=== PATIENT | male | born 1975 | race Two or more races ===

== ENCOUNTER 2019-01-09 03:26 | Inpatient (IN) | payer SELFPAY ==
[~2019-01-09] VITALS: Ht 167.6 cm; Wt 81.6 kg
[2019-01-09 03:43] LABS: BASO # 0.1 x10^3/uL (0.0-0.2); BASO % 2 % (0-3); EOS # 0.3 x10^3/uL (0.0-0.7); EOS % 4 % (0-3); HEMATOCRIT 45.9 % (39.0-53.0); LYMPH # 3.5 x10^3/uL (1.0-4.8); LYMPH % 52 % (24-48); MEAN CORPUSCULAR VOLUME 93 fL (79-100); MONO # 0.8 x10^3/uL (0.0-1.1); MONO % 11 % (0-9); NEUT # 2.1 x10^3/uL (1.8-7.7); NEUT % 31 % (31-73); PLATELET COUNT 196 x10^3/uL (140-400); RED BLOOD COUNT 4.95 x10^6/uL (4.30-5.70); RED CELL DISTRIBUTION WIDTH 12.7 % (11.5-14.5); WHITE BLOOD COUNT 6.7 x10^3/uL (4.0-11.0)
[2019-01-09] MEDS ORDERED: ONDANSETRON PF 4 MG/2 ML VIAL. IV ONE (03:45)
[2019-01-09 03:50] LABS: PROTHROMBIN TIME PATIENT 12.8 SEC (11.7-14.0)
[2019-01-09 03:51] LABS: CALCIUM 8.4 mg/dL (8.5-10.1); CREATININE 1.2 mg/dL (0.7-1.3); GFR 65.5; POTASSIUM 3.8 mmol/L (3.5-5.1)
[2019-01-09 03:57] LABS: ALBUMIN 3.5 g/dL (3.4-5.0); ALBUMIN/GLOBULIN RATIO 0.8 (1.0-1.7); TOTAL BILIRUBIN 1.2 mg/dL (0.2-1.0)
[2019-01-09] MEDS ORDERED: IV NORMAL SALINE 1000ML BAG 1,000 ML IV ONE (04:00)
[2019-01-09] MEDS ORDERED: MORPHINE SULFATE 4 MG/ML VIAL. IV ONE (04:00)
[2019-01-09 04:10] LABS: HEMOGLOBIN 15.8 g/dL (13.0-17.5); MEAN CORPUSCULAR HEMOGLOBIN 32 pg (25-35); MEAN CORPUSCULAR HGB CONC 34 g/dL (31-37)
[2019-01-09 04:16] LABS: TOTAL PROTEIN 8.1 g/dL (6.4-8.2)
[2019-01-09] MEDS ORDERED: IOHEXOL 300 MG/ML 100ML VIAL. IV ONE (05:00)
[2019-01-09] MEDS ORDERED: CONTRAST GIVEN. MC PRN (05:00)
--- NOTE | 2019-01-09 05:44 | PHYS DOC ---
Past Medical History Past Medical History: No Pertinent History (RAY JC MD) Past Surgical History: No Surgical History (RAY JC MD) Alcohol Use: Heavy Drug Use: None (RAY JC MD) Adult General Chief Complaint Chief Complaint: ABDOMINAL PAIN HPI HPI Patient is a 43 year old male presents with. Umbilical pain onset around 3 AM and awoke him from sleep it is severe he feels nauseous no vomiting last bowel movement was yesterday he last ate around 9 PM Pain is sharp severe cramping worst at that umbilicus no prior history no prior surgeries occasional alcohol actually he says fairly regularly no smoking known drug allergies occasionally goes to [facility]. All other ROS neg unless otherwise noted in HPI (RAY JC MD) Review of Systems Review of Systems SEE ABOVE (RAY JC MD) Current Medications Current Medications Current Medications Medications (Trade) Dose Ordered Sig/Aleks Start Time Stop Time Status Last Admin Dose Admin Info (CONTRAST GIVEN -- Rx MONITORING) 1 each PRN DAILY PRN 01/09/19 05:00 01/11/19 04:59 Iohexol (Omnipaque 300 Mg/ml) 75 ml 1X ONCE 01/09/19 05:00 01/09/19 05:01 DC 01/09/19 05:28 75 ML Lorazepam (Ativan Inj) 0.5 mg 1X ONCE 01/09/19 03:45 01/09/19 03:46 DC 01/09/19 03:40 0.5 MG Morphine Sulfate (Morphine Sulfate) 4 mg 1X ONCE 01/09/19 04:00 01/09/19 04:01 DC 01/09/19 03:39 4 MG Ondansetron HCl (Zofran) 4 mg 1X ONCE 01/09/19 03:45 01/09/19 03:46 DC 01/09/19 03:39 4 MG Sodium Chloride 1,000 ml @ 1,000 mls/hr 1X ONCE 01/09/19 04:00 01/09/19 04:59 DC 01/09/19 03:38 1,000 MLS/HR (DEE WALSH DO) Allergies Allergies Allergies Coded Allergies Type Severity Reaction Last Updated Verified No Known Drug Allergies 01/09/19 No (DEE WALSH DO) Physical Exam Physical Exam see above Constitutional: Well developed, well nourished, no acute distress, non-toxic appearance. [] HENT: Normocephalic, atraumatic, bilateral external ears normal, oropharynx moist, no oral exudates, nose normal. [] Eyes: PERRLA, EOMI, conjunctiva normal, no discharge. [] Neck: Normal range of motion, no tenderness, supple, no stridor. [] Cardiovascular:Heart rate regular rhythm, no murmur [] Lungs & Thorax: Bilateral breath sounds clear to auscultation [] Abdomen: Bowel sounds normal, there is no apparent umbilical hernia that is somewhat firm some mild discoloration not really that indurated however it was tender to palpation after a dose of morphine and Ativan I provided gentle p ressure and really was unable to adequately reduce it. The remainder of the abdomen was soft and essentially nontender no peritoneal signs Skin: Warm, dry, no erythema, no rash. [] Back: No tenderness, no CVA tenderness. [] Extremities: No tenderness, no cyanosis, no clubbing, ROM intact, no edema. [] Neurologic: Alert and oriented X 3, normal motor function, normal sensory function, no focal deficits noted. [] Psychologic: Affect normal, judgement normal, mood normal. [] (RAY JC MD) Physical Exam There is a tender irreducible umbilical hernia with mild discoloration, (DEE WALSH DO) Current Patient Data Vital Signs Vital Signs Date Time Temp Pulse Resp B/P (MAP) Pulse Ox O2 Delivery O2 Flow Rate FiO2 01/09/19 05:26 75 26 158/87 (110) 97 Room Air 01/09/19 03:30 98.4 98.4 (DEE WALSH DO) Lab Values Laboratory Tests Test 01/09/19 03:35 White Blood Count 6.7 x10^3/uL (4.0-11.0) Red Blood Count 4.95 x10^6/uL (4.30-5.70) Hemoglobin 15.8 g/dL (13.0-17.5) Hematocrit 45.9 % (39.0-53.0) Mean Corpuscular Volume 93 fL (79-100) Mean Corpuscular Hemoglobin 32 pg (25-35) Mean Corpuscular Hemoglobin Concent 34 g/dL (31-37) Red Cell Distribution Width 12.7 % (11.5-14.5) Platelet Count 196 x10^3/uL (140-400) Neutrophils (%) (Auto) 31 % (31-73) Lymphocytes (%) (Auto) 52 % (24-48) H Monocytes (%) (Auto) 11 % (0-9) H Eosinophils (%) (Auto) 4 % (0-3) H Basophils (%) (Auto) 2 % (0-3) Neutrophils # (Auto) 2.1 x10^3/uL (1.8-7.7) Lymphocytes # (Auto) 3.5 x10^3/uL (1.0-4.8) Monocytes # (Auto) 0.8 x10^3/uL (0.0-1.1) Eosinophils # (Auto) 0.3 x10^3/uL (0.0-0.7) Basophils # (Auto) 0.1 x10^3/uL (0.0-0.2) Prothrombin Time 12.8 SEC (11.7-14.0) Prothrombin Time INR 1.0 (0.8-1.1) Sodium Level 137 mmol/L (136-145) Potassium Level 3.8 mmol/L (3.5-5.1) Chloride Level 99 mmol/L (98-107) Carbon Dioxide Level 18 mmol/L (21-32) L Anion Gap 20 (6-14) H Blood Urea Nitrogen 15 mg/dL (8-26) Creatinine 1.2 mg/dL (0.7-1.3) Estimated GFR (Cockcroft-Gault) 65.5 BUN/Creatinine Ratio 13 (6-20) Glucose Level 183 mg/dL (70-99) H Calcium Level 8.4 mg/dL (8.5-10.1) L Total Bilirubin 1.2 mg/dL (0.2-1.0) H Aspartate Amino Transferase (AST) 87 U/L (15-37) H Alanine Aminotransferase (ALT) 77 U/L (16-63) H Alkaline Phosphatase 134 U/L (46-116) H Total Protein 8.1 g/dL (6.4-8.2) Albumin 3.5 g/dL (3.4-5.0) Albumin/Globulin Ratio 0.8 (1.0-1.7) L Lipase 154 U/L (73-393) Laboratory Tests 01/09/19 03:35 Laboratory Tests 01/09/19 03:35 (DEE WALSH DO) EKG EKG [] (RAY JC MD) Radiology/Procedures Radiology/Procedures [] (RAY JC MD) Radiology/Procedures [facility] [address] [place] [address] IMAGING REPORT Signed PATIENT: SANDRA ORTIZ ACCOUNT: [id number] : 1975 LOCATION: ER AGE: 43 SEX: M EXAM STATUS: REG ER ORD. PHYSICIAN: RAY JC MD REASON: eval umbilical hernia PROCEDURE: CT ABD PELV W/ IV CONTRST ONLY EXAM: CT Abdomen and Pelvis with IV contrast CLINICAL HISTORY: Periumbilical pain, umbilical hernia. COMPARISON: none TECHNIQUE: Helical CT of the abdomen and pelvis was performed following the administration of intravenous contrast. Axial, coronal and sagittal reformatted images were generated. PQRS compliance statement - One or more of the following individualized dose reduction techniques were utilized for this study: 1. Automated exposure control 2. Adjustment of the mA and/or kV according to patient size 3. Use of iterative reconstruction technique FINDINGS: Lower chest: Lung bases are clear. Abdomen and Pelvis: Diffuse hepatic hypoattenuation may be seen with hepatic steatosis. Gallbladder is contracted. No biliary duct dilatation. Pancreas is unremarkable. Spleen is normal in appearance. Right adrenal gland is grossly unremarkable. Calcifications of adrenal gland may be seen with prior adrenal hemorrhage. Symmetric nephrograms. No focal renal lesion. No hydronephrosis. No hydroureter. Moderate colonic stool content is seen. Appendix is normal. No small or large bowel dilatation. No abdominal or pelvic lymphadenopathy. No abdominal or pelvic ascites. Small fat-containing periumbilical hernia is seen. Minimal fat infiltration may suggest symptomatic hernia. No associated free or loculated fluid collection. The base of this hernia is narrow. Bladder is quite distended, which can be correlated for possible voluntary or involuntary causes of urinary retention. Bones: Osseous structures are unremarkable. IMPRESSION: Minimal wall fat infiltration within a fat-containing periumbilical hernia (with a narrow base), possibly symptomatic hernia. No associated fluid collection. Bladder is quite distended, which can be correlated for possible voluntary or involuntary causes of urinary retention. Electronically signed by: Kwabena Decker MD (01/09/2019 5:49 AM) [facility] [id number] DICTATED and SIGNED BY: KWABENA DECKER MD DATE: 01/09/19 0549 (DEE WALSH DO) Course & Med Decision Making Course & Med Decision Making Pertinent Labs and Imaging studies reviewed. (See chart for details) []4:30 AM I discussed with Dr. HACKETT, recommend CT scan to get a better look at what is in the umbilical hernia call back with resuLT WHEN IT COMES BACK S/O JILLIAN to d/w cassi the results of ct scan. (RAY JC MD) Course & Med Decision Making Discussed with Dr. Hackett, he will take patient to OR for definitive treatment today, requested patient to be admitted to hospitalist service Discussed with Dr Wright whom agreed to admit patient (DEE WALSH DO) Dragon Disclaimer Dragon Disclaimer This electronic medical record was generated, in whole or in part, using a voice recognition dictation system. (RAY JC MD) Departure Departure Impression: Primary Impression: Incarcerated umbilical hernia Disposition: ADMITTED INPATIENT Admitting Physician: MERY (DEE WALSH DO) Condition: STABLE Referrals: NO PCP (PCP) Scripts No Active Prescriptions or Reported Meds RAY JC MD Jan 09, 2019 05:44 DEE WALSH DO Jan 09, 2019 06:30
--- NOTE | 2019-01-09 05:52 | RAD ---
EXAM: CT Abdomen and Pelvis with IV contrast CLINICAL HISTORY: Periumbilical pain, umbilical hernia. COMPARISON: none TECHNIQUE: Helical CT of the abdomen and pelvis was performed following the administration of intravenous contrast. Axial, coronal and sagittal reformatted images were generated. PQRS compliance statement - One or more of the following individualized dose reduction techniques were utilized for this study: 1. Automated exposure control 2. Adjustment of the mA and/or kV according to patient size 3. Use of iterative reconstruction technique FINDINGS: Lower chest: Lung bases are clear. Abdomen and Pelvis: Diffuse hepatic hypoattenuation may be seen with hepatic steatosis. Gallbladder is contracted. No biliary duct dilatation. Pancreas is unremarkable. Spleen is normal in appearance. Right adrenal gland is grossly unremarkable. Calcifications of adrenal gland may be seen with prior adrenal hemorrhage. Symmetric nephrograms. No focal renal lesion. No hydronephrosis. No hydroureter. Moderate colonic stool content is seen. Appendix is normal. No small or large bowel dilatation. No abdominal or pelvic lymphadenopathy. No abdominal or pelvic ascites. Small fat-containing periumbilical hernia is seen. Minimal fat infiltration may suggest symptomatic hernia. No associated free or loculated fluid collection. The base of this hernia is narrow. Bladder is quite distended, which can be correlated for possible voluntary or involuntary causes of urinary retention. Bones: Osseous structures are unremarkable. IMPRESSION: Minimal wall fat infiltration within a fat-containing periumbilical hernia (with a narrow base), possibly symptomatic hernia. No associated fluid collection. Bladder is quite distended, which can be correlated for possible voluntary or involuntary causes of urinary retention. Electronically signed by: Kwabena Yarbrough MD (01/09/2019 5:49 AM) [facility]
[2019-01-09] MEDS ORDERED: MORPHINE SULFATE 2 MG/ML VIAL. IV PRN ×2 (06:45→09:00)
[2019-01-09] MEDS ORDERED: ONDANSETRON PF 4 MG/2 ML VIAL. IV PRN ×2 (06:45→09:00)
--- NOTE | 2019-01-09 07:30 | NUR ---
The patient, SANDRA ORTIZ, 43 y/o, M admitted by ELIZABETH RICKS MD, was given written information regarding hospital policies, unit procedures and contact persons. Dr. Huang consulted, notified by ER. Pt states, he has had this hernia for 3 years, became bigger and more painful last night. Pain reached 10/10 w/ movement. Pain is controlled at this time. Reports no significant medical hx. Surgical hx includes: hernia repair as a young child; as a young adult, penetrating abdominal injury. Fell from a tree and was impaled by a branch. Pt takes ibuprofen for aches and pains on rare occasions. Pt drinks 4-6 beers a day, 6-7 days a week. Last drink was yesterday at 11pm, had 2 beers. Will report to providers. Will continue to monitor.
--- NOTE | 2019-01-09 07:53 | RAD ---
ACUTE ABDOMEN SERIES Clinical indications: Periumbilical abdominal pain. Possible obstruction. Comparison: None available. Findings: No obstructive bowel pattern is seen. No free intraperitoneal air or air-fluid levels are seen. Chest x-ray demonstrates no acute lung infiltrate or pleural effusion or pulmonary edema or pneumothorax is evident. Heart size and pulmonary vasculature and mediastinum and both salud are unremarkable. IMPRESSION: No acute radiographic abnormality. Electronically signed by: Amrik Johnson MD (01/09/2019 7:50 AM) [facility]
[2019-01-09] MEDS ORDERED: DEXTROSE 50% 25 GM / 50ML DISP.SYRIN. IV PRN (08:45)
[2019-01-09] MEDS ORDERED: IV DEXTROSE 5% 250 ML BAG. IV PRN (08:45)
[2019-01-09] MEDS ORDERED: IV RINGERS,LACTATED 1000ML 1,000 ML IV SCH (08:47)
--- NOTE | 2019-01-09 08:50 | NUR ---
SS following for discharge planning. SS reviewed pt chart. Pt is a self pay pt. HCFS following for self pay status. Pt is from home with spouse and is currently on room air. No discharge needs noted at this time. SS will continue to follow for discharge planning.
[2019-01-09] MEDS ORDERED: fentaNYL PF VIAL 100 MCG/2 ML VIAL IV PRN ×2 (09:00)
[2019-01-09] MEDS ORDERED: PROCHLORPERAZINE 10 MG/2 ML VIAL. IV PRN (09:00)
[2019-01-09] MEDS ORDERED: HYDROmorphone 2 MG/ML VIAL IV PRN (09:00)
[2019-01-09] MEDS ORDERED: LIDOCAINE 1% PF 2 ML VIAL. ID PRN (09:00)
[2019-01-09] MEDS: IV NORMAL SALINE 1000ML BAG 1,000 ML IV SCH ×2 (09:24→15:04)
[2019-01-09 11:00] VITALS: BP 135/83
--- NOTE | 2019-01-09 11:14 | HP ---
ADMIT DATE: CHIEF COMPLAINT: Abdominal pain. HISTORY OF PRESENT ILLNESS: The patient is a pleasant middle-aged male, who presented with abdominal pain. He appears to have an incarcerated umbilical hernia, started hurting about 3 this morning, it is rated at 10/10. I discussed the case with ER physician. We are going to admit the patient. He is going to be going for surgery possibly today. We are consulting Dr. Huang. PAST MEDICAL HISTORY: None. ALLERGIES: None. FAMILY HISTORY: Hypertension. SOCIAL HISTORY: Does not drink, smoke, or take drugs. MEDICATIONS: Reviewed, please refer to the MRAD. REVIEW OF SYSTEMS: GENERAL: No history of weight change, weakness or fevers. SKIN: No bruising, hair changes or rashes. EYES: No blurred, double or loss of vision. NOSE AND THROAT: No history of nosebleeds, hoarseness or sore throat. HEART: No history of palpitations, chest pain or shortness of breath on exertion. LUNGS: Denies cough, hemoptysis, wheezing or shortness of breath. GASTROINTESTINAL: He complains of abdominal pain. GENITOURINARY: No history of frequency, urgency, hesitancy or nocturia. NEUROLOGIC: Denies history of numbness, tingling, tremor or weakness. PSYCHIATRIC: No history of panic, anxiety or depression. ENDOCRINE: No history of heat or cold intolerance, polyuria or polydipsia. EXTREMITIES: Denies muscle weakness, joint pain, pain on walking or stiffness. PHYSICAL EXAMINATION: VITALS: Within normal limits and are stable. GENERAL: No apparent distress. Alert and oriented. HEENT: Head is normocephalic, atraumatic, pupils were equally round and reactive to light and accommodation. NECK: Supple, no JVD, no thyromegaly was noted. LUNGS: Clear to auscultation in all lung heart without rhonchi or wheezing. HEART: RRR, S1, S2 present. Peripheral pulses intact, no obvious murmurs were noted. ABDOMEN: He has an umbilical hernia that is tender to palpation. EXTREMITIES: Without any cyanosis, clubbing, or edema. Pedal pulses intact, Homans sign is negative. NEUROLOGIC: Normal speech, normal tone. A and O x 3, moves all extremities, no obvious focal deficits. PSYCHIATRIC: Normal affect, normal mood. Stable. SKIN: No ulcerations or rashes, good skin turgor, no jaundice. VASCULAR: Good capillary refill, neurovascular bundle appears to be intact. LABORATORY DATA: White count is 6. ASSESSMENT AND PLAN: Incarcerated umbilical hernia. The patient has been admitted. We are consulting General Surgery. P.r.n. pain meds, IV fluids. DVT prophylaxis. Full code. P.r.n. fentanyl. PEARL BARBER DO DR: WILLARD/juan manuel JOB#: [id number] / [id number]
[2019-01-09] MEDS: INSULIN LISPRO 300 UNITS/3 ML INSULN.PEN. SQ SCH ×2 (12:00→16:52)
[2019-01-09] MEDS ORDERED: BUPIVACAINE MPF 0.5% 30 ML VIAL. ONE (12:01)
[2019-01-09] MEDS ORDERED: PROPOFOL 0 ML IV ONE (12:16)
[2019-01-09] MEDS ORDERED: ONDANSETRON PF 4 MG/2 ML VIAL. ONE ×2 (12:16→12:46)
[2019-01-09] MEDS ORDERED: LIDOCAINE 2% PF 5 ML VIAL. ONE ×2 (12:16→12:46)
[2019-01-09] MEDS ORDERED: ROCURONIUM 50 MG/5 ML VIAL. ONE (12:17)
[2019-01-09] MEDS ORDERED: MIDAZOLAM HCL/PF 2 MG/2 ML VIAL. ONE (12:46)
[2019-01-09] MEDS ORDERED: PROPOFOL 20 ML IV ONE ×2 (12:46→13:38)
[2019-01-09] MEDS ORDERED: SEVOFLURANE 61 TO 120 MINUTES. IH ONE (12:46)
[2019-01-09] MEDS ORDERED: fentaNYL PF VIAL 100 MCG/2 ML VIAL ONE ×2 (12:46→13:50)
[2019-01-09] MEDS ORDERED: DEXAMETHASONE SOD PHOS 4 MG/ML VIAL ONE (12:46)
--- NOTE | 2019-01-09 13:14 | PDOC2 ---
CONSULT Date of Consult Date of Consult DATE: 01/09/19 TIME: 13:10 Reason for Consult Reason for Consult: incarcerated umbilical hernia Referring Physician Referring Physician: CHRIS Identification/Chief Complaint Chief Complaint umbilical pain Source Source: Chart review, Patient History of Present Illness Reason for Visit: Mr Hendrickson is a Citizen Of [place] speaking gentleman with umbilical fullness and pain. Current Problem List Problem List Problems Medical Problems: (1) Incarcerated umbilical hernia Status: Acute (2) K42.9 Status: Acute Current Medications Current Medications Current Medications Sodium Chloride 1,000 ml @ 1,000 mls/hr 1X ONCE IV Last administered on 01/09/19at 03:38; Start 01/09/19 at 04:00; Stop 01/09/19 at 04:59; Status DC Morphine Sulfate (Morphine Sulfate) 4 mg 1X ONCE IV Last administered on 01/09/19at 03:39; Start 01/09/19 at 04:00; Stop 01/09/19 at 04:01; Status DC Ondansetron HCl (Zofran) 4 mg 1X ONCE IV Last administered on 01/09/19at 03:39; Start 01/09/19 at 03:45; Stop 01/09/19 at 03:46; Status DC Lorazepam (Ativan Inj) 0.5 mg 1X ONCE IV Last administered on 01/09/19at 03:40; Start 01/09/19 at 03:45; Stop 01/09/19 at 03:46; Status DC Iohexol (Omnipaque 300 Mg/ml) 75 ml 1X ONCE IV Last administered on 01/09/19at 05:28; Start 01/09/19 at 05:00; Stop 01/09/19 at 05:01; Status DC Info (CONTRAST GIVEN -- Rx MONITORING) 1 each PRN DAILY PRN MC SEE COMMENTS; Start 01/09/19 at 05:00; Stop 01/11/19 at 04:59 Ondansetron HCl (Zofran) 4 mg PRN Q8HRS PRN IV NAUSEA/VOMITING 1ST CHOICE; Start 01/09/19 at 06:45; Stop 01/09/19 at 08:49; Status DC Morphine Sulfate (Morphine Sulfate) 2 mg PRN Q2HR PRN IV SEVERE PAIN 7-10; Start 01/09/19 at 06:45; Stop 01/10/19 at 06:44 Sodium Chloride 1,000 ml @ 100 mls/hr Q10H IV Last administered on 01/09/19at 09:24; Start 01/09/19 at 07:00; Stop 01/10/19 at 06:59 Dextrose (Dextrose 50%-Water Syringe) 12.5 gm PRN Q15MIN PRN IV SEE COMMENTS; Start 01/09/19 at 08:45 Dextrose 250 ml PRN Q15MIN PRN IV SEE COMMENTS; Start 01/09/19 at 08:45 Ondansetron HCl (Zofran) 4 mg PRN Q6HRS PRN IV NAUSEA/VOMITING; Start 01/09/19 at 09:00; Stop 01/10/19 at 08:59 Fentanyl Citrate (Fentanyl 2ml Vial) 25 mcg PRN Q5MIN PRN IV MILD PAIN 1-3; Start 01/09/19 at 09:00; Stop 01/10/19 at 08:59 Fentanyl Citrate (Fentanyl 2ml Vial) 50 mcg PRN Q5MIN PRN IV MODERATE TO SEVERE PAIN; Start 01/09/19 at 09:00; Stop 01/10/19 at 08:59 Morphine Sulfate (Morphine Sulfate) 1 mg PRN Q10MIN PRN IV SEVERE PAIN 7-10; Start 01/09/19 at 09:00; Stop 01/10/19 at 08:59 Ringer's Solution 1,000 ml @ 30 mls/hr Q24H IV ; Start 01/09/19 at 08:47; Stop 01/09/19 at 20:46 Lidocaine HCl (Xylocaine-Mpf 1% 2ml Vial) 2 ml PRN 1X PRN ID PRIOR TO IV START; Start 01/09/19 at 09:00; Stop 01/10/19 at 08:59 Hydromorphone HCl (Dilaudid) 0.5 mg PRN Q10MIN PRN IV SEV PAIN, Second choice; Start 01/09/19 at 09:00; Stop 01/10/19 at 08:59 Prochlorperazine Edisylate (Compazine) 5 mg PACU PRN PRN IV NAUSEA, MRX1; Sta rt 01/09/19 at 09:00; Stop 01/10/19 at 08:59 Insulin Human Lispro (HumaLOG) 0-5 UNITS TIDWMEALS SQ ; Start 01/09/19 at 12:00 Propofol 20 ml @ As Directed STK-MED ONCE IV ; Start 01/09/19 at 12:16; Stop 01/09/19 at 12:17; Status DC Lidocaine HCl (Lidocaine Pf 2% Vial) 5 ml STK-MED ONCE .ROUTE ; Start 01/09/19 at 12:16; Stop 01/09/19 at 12:17; Status DC Ondansetron HCl (Zofran) 4 mg STK-MED ONCE .ROUTE ; Start 01/09/19 at 12:16; Stop 01/09/19 at 12:17; Status DC Rocuronium [place] (Zemuron) 50 mg STK-MED ONCE .ROUTE ; Start 01/09/19 at 12:17; Stop 01/09/19 at 12:18; Status DC Sevoflurane (Ultane) 60 ml STK-MED ONCE IH ; Start 01/09/19 at 12:46; Stop 01/09/19 at 12:47; Status DC Fentanyl Citrate (Fentanyl 2ml Vial) 100 mcg STK-MED ONCE .ROUTE ; Start 01/09/19 at 12:46; Stop 01/09/19 at 12:47; Status DC Midazolam HCl (Versed) 2 mg STK-MED ONCE .ROUTE ; Start 01/09/19 at 12:46; Stop 01/09/19 at 12:47; Status DC Dexamethasone Sodium Phosphate (Decadron) 4 mg STK-MED ONCE .ROUTE ; Start 01/09/19 at 12:46; Stop 01/09/19 at 12:47; Status DC Propofol 20 ml @ As Directed STK-MED ONCE IV ; Start 01/09/19 at 12:46; Stop 01/09/19 at 12:47; Status DC Lidocaine HCl (Lidocaine Pf 2% Vial) 5 ml STK-MED ONCE .ROUTE ; Start 01/09/19 at 12:46; Stop 01/09/19 at 12:47; Status DC Ondansetron HCl (Zofran) 4 mg STK-MED ONCE .ROUTE ; Start 01/09/19 at 12:46; Stop 01/09/19 at 12:47; Status DC Cefazolin Sodium/ Dextrose 50 ml @ 100 mls/hr 1X PREOP PRN IV protocol; Start 01/09/19 at 13:00 Bupivacaine HCl (Sensorcaine Mpf 0.5%) 30 ml STK-MED ONCE .ROUTE ; Start 01/09/19 at 12:01; Stop 01/09/19 at 13:01; Status DC Active Scripts Active Reported No Known Medications Prior To Admisstion (Info) Each 1 Each MC Allergies Allergies: Coded Allergies: No Known Drug Allergies (Unverified , 01/09/19) ROS Review of System negative with exception of present complaints Physical Exam General: Alert, No acute distress HEENT: Atraumatic Lungs: Normal air movement Heart: Regular rate Abdomen: Soft, Other (there is soft umbilical fullness that is not reducible) Skin: No rashes Vitals VITALS Vital Signs Date Time Temp Pulse Resp B/P (MAP) Pulse Ox O2 Delivery O2 Flow Rate FiO2 01/09/19 12:13 97.6 71 22 150/100 98 97.6 01/09/19 11:00 Room Air Labs Labs Laboratory Tests Test 01/09/19 03:35 01/09/19 11:33 White Blood Count 6.7 x10^3/uL (4.0-11.0) Red Blood Count 4.95 x10^6/uL (4.30-5.70) Hemoglobin 15.8 g/dL (13.0-17.5) Hematocrit 45.9 % (39.0-53.0) Mean Corpuscular Volume 93 fL (79-100) Mean Corpuscular Hemoglobin 32 pg (25-35) Mean Corpuscular Hemoglobin Concent 34 g/dL (31-37) Red Cell Distribution Width 12.7 % (11.5-14.5) Platelet Count 196 x10^3/uL (140-400) Neutrophils (%) (Auto) 31 % (31-73) Lymphocytes (%) (Auto) 52 % (24-48) Monocytes (%) (Auto) 11 % (0-9) Eosinophils (%) (Auto) 4 % (0-3) Basophils (%) (Auto) 2 % (0-3) Neutrophils # (Auto) 2.1 x10^3/uL (1.8-7.7) Lymphocytes # (Auto) 3.5 x10^3/uL (1.0-4.8) Monocytes # (Auto) 0.8 x10^3/uL (0.0-1.1) Eosinophils # (Auto) 0.3 x10^3/uL (0.0-0.7) Basophils # (Auto) 0.1 x10^3/uL (0.0-0.2) Prothrombin Time 12.8 SEC (11.7-14.0) Prothromb Time International Ratio 1.0 (0.8-1.1) Sodium Level 137 mmol/L (136-145) Potassium Level 3.8 mmol/L (3.5-5.1) Chloride Level 99 mmol/L (98-107) Carbon Dioxide Level 18 mmol/L (21-32) Anion Gap 20 (6-14) Blood Urea Nitrogen 15 mg/dL (8-26) Creatinine 1.2 mg/dL (0.7-1.3) Estimated GFR (Cockcroft-Gault) 65.5 BUN/Creatinine Ratio 13 (6-20) Glucose Level 183 mg/dL (70-99) Calcium Level 8.4 mg/dL (8.5-10.1) Total Bilirubin 1.2 mg/dL (0.2-1.0) Aspartate Amino Transf (AST/SGOT) 87 U/L (15-37) Alanine Aminotransferase (ALT/SGPT) 77 U/L (16-63) Alkaline Phosphatase 134 U/L (46-116) Total Protein 8.1 g/dL (6.4-8.2) Albumin 3.5 g/dL (3.4-5.0) Albumin/Globulin Ratio 0.8 (1.0-1.7) Lipase 154 U/L (73-393) Glucose (Fingerstick) 115 mg/dL (70-99) Laboratory Tests Test 01/09/19 03:35 01/09/19 11:33 White Blood Count 6.7 x10^3/uL (4.0-11.0) Red Blood Count 4.95 x10^6/uL (4.30-5.70) Hemoglobin 15.8 g/dL (13.0-17.5) Hematocrit 45.9 % (39.0-53.0) Mean Corpuscular Volume 93 fL (79-100) Mean Corpuscular Hemoglobin 32 pg (25-35) Mean Corpuscular Hemoglobin Concent 34 g/dL (31-37) Red Cell Distribution Width 12.7 % (11.5-14.5) Platelet Count 196 x10^3/uL (140-400) Neutrophils (%) (Auto) 31 % (31-73) Lymphocytes (%) (Auto) 52 % (24-48) Monocytes (%) (Auto) 11 % (0-9) Eosinophils (%) (Auto) 4 % (0-3) Basophils (%) (Auto) 2 % (0-3) Neutrophils # (Auto) 2.1 x10^3/uL (1.8-7.7) Lymphocytes # (Auto) 3.5 x10^3/uL (1.0-4.8) Monocytes # (Auto) 0.8 x10^3/uL (0.0-1.1) Eosinophils # (Auto) 0.3 x10^3/uL (0.0-0.7) Basophils # (Auto) 0.1 x10^3/uL (0.0-0.2) Prothrombin Time 12.8 SEC (11.7-14.0) Prothromb Time International Ratio 1.0 (0.8-1.1) Sodium Level 137 mmol/L (136-145) Potassium Level 3.8 mmol/L (3.5-5.1) Chloride Level 99 mmol/L (98-107) Carbon Dioxide Level 18 mmol/L (21-32) Anion Gap 20 (6-14) Blood Urea Nitrogen 15 mg/dL (8-26) Creatinine 1.2 mg/dL (0.7-1.3) Estimated GFR (Cockcroft-Gault) 65.5 BUN/Creatinine Ratio 13 (6-20) Glucose Level 183 mg/dL (70-99) Calcium Level 8.4 mg/dL (8.5-10.1) Total Bilirubin 1.2 mg/dL (0.2-1.0) Aspartate Amino Transf (AST/SGOT) 87 U/L (15-37) Alanine Aminotransferase (ALT/SGPT) 77 U/L (16-63) Alkaline Phosphatase 134 U/L (46-116) Total Protein 8.1 g/dL (6.4-8.2) Albumin 3.5 g/dL (3.4-5.0) Albumin/Globulin Ratio 0.8 (1.0-1.7) Lipase 154 U/L (73-393) Glucose (Fingerstick) 115 mg/dL (70-99) Images Images CT abd/pelvis reviewed Assessment/Plan Assessment/Plan incarcerated umbilical hernia repair with the use of the manager maintenance phone R/B/A explained to patient and he will proceed Thanks for consult JORGE HACKETT MD Jan 09, 2019 13:14
--- NOTE | 2019-01-09 14:40 | PDOC ---
BRIEF OPERATIVE NOTE Date: Jan 09, 2019 Pre-Op Diagnosis incarcerated umbilical hernia\ incarcerated umbilical hernia Post-Op Diagnosis same Procedure Performed primary repair Surgeon Sal Machine Binding Folder Cassy HARVEY Anesthesia Type: General Blood Loss 10cc IV Fluid 500cc Specimens Obtained none Findings small defect with incarcerated omentum Complications none JORGE HACKETT MD Jan 09, 2019 14:40
[2019-01-09] MEDS ORDERED: oxyCODONE/APAP 5/325 1 TAB TABLET PO PRN (14:45)
[2019-01-09 15:00] VITALS: BP 123/77
[2019-01-09] MEDS ORDERED: POTASSIUM CHLORIDE 20 MEQ TABLET.ER. PO ONE (16:45)
--- NOTE | 2019-01-09 19:12 | NUR ---
Discharge Note: SANDRA ORTIZ KANAWHA Discharge instructions and discharge home medications reviewed with Patient and a copy given. All questions have been answered and understanding verbalized. The following instructions and handouts were given: post-op hernia repair Discontinued lines and drains: peripheral line. Patient discharged to Home or Self Care with Family Member via Wheelchair
--- NOTE | 2019-01-20 11:22 | OP ---
DATE OF SURGERY: 01/09/2019 PREOPERATIVE DIAGNOSIS: Incarcerated umbilical hernia. POSTOPERATIVE DIAGNOSIS: Incarcerated umbilical hernia. PROCEDURE: Primary repair. SURGEON: Castro Hackett MD [employer] TEACHER: CANDICE Specne ANESTHESIA: General. ESTIMATED BLOOD LOSS: 10. IVLUIDS: 500. DESCRIPTION OF PROCEDURE: The patient brought to the operating suite, given a general anesthetic and the abdomen prepped and draped in usual sterile fashion. An infraumbilical incision was made and dissection carried down to the anterior sheath. The hernia was carefully encircled. [place] drain placed around it. The umbilical skin freed from the hernia. The omental contents were freed and reduced. The small defect was closed with interrupted inverted 0 PDS suture. Second row of repair with 0 Vicryl. Good hemostasis was present. Correct sponge count was present, umbilical skin tacked to the underlying repair with 3-0 Vicryl. Skin closed with a subcuticular 4-0 Monocryl. Steri-Strips and sterile dressing applied. The patient was awakened from his anesthetic and taken to the recovery room in satisfactory condition. CASTRO HACKETT MD DR: EVANGELINA/juan manuel JOB#: [id number] / [id number]
== END 2019-01-09 19:15 | disposition home or self-care (01) | DRG 355 ==
LOC: ER 03:26 → 4 NORTH 06:24
PROVIDERS: ADMIT Internal Medicine; ATTEND Internal Medicine
PROC: 0WQF0ZZ Repair Abdominal Wall, Open Approach (ICD-10-PCS; principal; 2019-01-09 13:00)
DX: K42.0 Umbilical hernia with obstruction, without gangrene (principal); Z82.49 Family history of ischemic heart disease and other diseases of the circulatory system
CPT/HCPCS: 36415; 74022; 74177; 80053; 82962; 83690; 85025; 85610; 96361; 96374; 96375; J0696; J1100; J1815; J2001; J2060; J2250; J2270; J2405; J2704; J3010; J3490; J7030; Q9967; 99285-25; G0378